=== PATIENT | female | born 1965 | race Caucasian/White ===

== ENCOUNTER → 2019-07-03 | Outpatient (CLI) | payer MEDICAID, BC ==
[2019-07-03 15:55] LABS: COLLECTION METHOD CLEAN CATCH
[2019-07-03 16:03] LABS: BASO % 0.5 % (0.0-2.0); EOS # 0.1 (0.0-0.7); EOS % 2.4 % (0-4.0); GRAN # 3.4 (1.4-6.5); GRAN % 81.9 % (42.2-75.2); HEMATOCRIT 50.5 % (37.0-47.0); HEMOGLOBIN 16.6 g/dl (12.5-16.0); LYMPH # 0.4 (1.2-3.4); LYMPH % 8.7 % (20.0-51.0); MEAN CELL VOLUME 107 fl (80.0-100.0); MEAN CORPUSCULAR HEMOGLOBIN 35 pg (27.0-31.0); MEAN CORPUSCULAR HGB CONC 33 g/dl (33.0-37.0); MEAN PLATELET VOLUME 10.1 fl (7.4-10.4); MONO # 0.3 (0.1-0.6); MONO % 6.3 % (1.7-9.3); PLATELET COUNT 174 K/mm3 (130-400); RED BLOOD COUNT 4.74 M/mm3 (4.10-5.30)
[2019-07-03 16:08] LABS: PH 7 (5-8); URINE APPEARANCE Cloudy; URINE BACTERIA None Seen /hpf; URINE BILIRUBIN Negative (NEGATIVE); URINE BLOOD Negative (NEGATIVE); URINE COLOR Yellow; URINE GLUCOSE Negative (NEGATIVE); URINE KETONE Negative (NEGATIVE); URINE LEUKOCYTE ESTERASE Negative (NEGATIVE); URINE NITRATE Negative (NEGATIVE); URINE PROTEIN(semi-quant) Negative (NEGATIVE); URINE RBC 0-2 /hpf; URINE UROBILINOGEN Negative (NEGATIVE)
[2019-07-03 16:09] LABS: PROTHROMBIN TIME 11.5 SECONDS (9.7-12.8)
[2019-07-03 16:19] LABS: BILIRUBIN,TOTAL 0.7 mg/dL (0.0-1.0); CALCIUM 11.7 mg/dL (8.4-10.2); CREATININE, serum 0.63 (0.52-1.25); TOTAL PROTEIN 10.1 gm/dL (6.4-8.2)
== END ==
LOC: COL.LAB 15:14
PROVIDERS: Orthopaedic Surgery
DX: Z01.812 Encounter for preprocedural laboratory examination (principal); C79.89 Secondary malignant neoplasm of other specified sites; M89.9 Disorder of bone, unspecified

== ENCOUNTER 2019-07-08 05:13 | Emergency (ER) | payer BC, MEDICAID ==
[~2019-07-08] VITALS: Ht 165.1 cm; Wt 43.2 kg
[2019-07-08 05:39] LABS: BASO % 0.2 % (0.0-2.0); EOS % 0.2 % (0-4.0); GRAN # 7.8 (1.4-6.5); HEMATOCRIT 45.4 % (37.0-47.0); LYMPH # 0.6 (1.2-3.4); LYMPH % 6.9 % (20.0-51.0); MEAN CELL VOLUME 105 fl (80.0-100.0); MEAN CORPUSCULAR HEMOGLOBIN 35 pg (27.0-31.0); MEAN CORPUSCULAR HGB CONC 33 g/dl (33.0-37.0); MEAN PLATELET VOLUME 10.1 fl (7.4-10.4); MONO # 0.4 (0.1-0.6); MONO % 4.1 % (1.7-9.3); PLATELET COUNT 138 K/mm3 (130-400); RED BLOOD COUNT 4.33 M/mm3 (4.10-5.30)
[2019-07-08 05:44] LABS: INR 1.1 (0.8-3.0); PROTHROMBIN TIME 12.8 SECONDS (9.7-12.8)
[2019-07-08 05:49] LABS: ALANINE AMINOTRANSFERASE < 6 U/L (9-52); ALBUMIN 4.6 gm/dL (3.5-5.0); ALKALINE PHOSPHATASE 79 U/L (50-136); ANION GAP 16 mmol/L (7-16); AST,SGOT 67 U/L (15-37); BILIRUBIN,TOTAL 0.7 mg/dL (0.0-1.0); BLOOD UREA NITROGEN 19 mg/dL (7-17); CARBON DIOXIDE 34 mmol/L (22-30); CHLORIDE 90 mmol/L (98-107); GLUCOSE 209 mg/dL (74-106); POTASSIUM 3.6 mmol/L (3.4-5.0); SODIUM 139 mmol/L (137-145)
[2019-07-08 05:52] LABS: CALCIUM 12.9 mg/dL (8.4-10.2)
[2019-07-08 05:57] VITALS: TEMP 98.4
[2019-07-08 06:00] LABS: TROPONIN-I 0.016 ng/mL (0.000-0.035)
[2019-07-08 07:21] LABS: ARTERIAL BLD GAS O2 SATURATION 99.4 % (92-100); ARTERIAL BLD GAS TCO2 CT 27.4; ARTERIAL BLOOD GAS BASE EXCESS 2.1 (-2-2); ARTERIAL BLOOD GAS HCO3 26.2 meq/L (22-26); ARTERIAL BLOOD GAS pH 7.45 (7.35-7.45)
[2019-07-08 07:22] LABS: ARTERIAL BLOOD GAS PO2 499.3 mmHg (80-100)
[2019-07-08 07:45] LABS: COLLECTION METHOD IN
[2019-07-08 07:56] LABS: MUCOUS Present /lpf; PH 7 (5-8); SQUAMOUS EPITHELIAL 0-2 /hpf; URINE APPEARANCE Clear; URINE BACTERIA None Seen /hpf; URINE BILIRUBIN Negative (NEGATIVE); URINE BLOOD Negative (NEGATIVE); URINE COLOR Yellow; URINE GLUCOSE 1+ (NEGATIVE); URINE KETONE Trace (NEGATIVE); URINE LEUKOCYTE ESTERASE Negative (NEGATIVE); URINE NITRATE Negative (NEGATIVE); URINE PROTEIN(semi-quant) 2+ (NEGATIVE); URINE RBC 0-2 /hpf; URINE UROBILINOGEN Negative (NEGATIVE)
[2019-07-08 08:11] LABS: TRICYCLIC ANTIDEPRESS URINE NEGATIVE
[2019-07-08 08:54] VITALS: BP 164/120; PULSE 107
== END 2019-07-08 08:54 | disposition short-term general hospital (02) ==
LOC: COL.ER 05:13
PROVIDERS: Emergency Medicine
DX: R41.82 Altered mental status, unspecified (principal)
CPT/HCPCS: J0692; J1953; J2060; J2250; J2704; J3010; J7030; Q9967